=== PATIENT | female | born 1925 | race Caucasian/White ===

== ENCOUNTER 2017-04-15 09:42 | Inpatient (IN) ==
[2017-04-15] MEDS ORDERED: ONDANSETRON 4 MG/2 ML VIAL ONE (10:04)
[2017-04-15] MEDS ORDERED: ONDANSETRON 4 MG/2 ML VIAL IV STA (10:05)
[2017-04-15] MEDS ORDERED: SODIUM CHLORIDE 0.9% 500 ML IV STA (10:06)
[2017-04-15 10:16] LABS: Basophils % 0.4 % (0.0-0.8); Eosinophils % 0.2 % (0.00-10.9); Hematocrit 37.1 VOL% (35.7-47.0); Hemoglobin 12.8 GM/DL (12.0-16.0); Immature Granulocytes % 0.9 %; Immature Granulocytes Absolute 0.05 #; Lymphocytes # 0.5 10*3/uL (1.4-4.0); Lymphocytes % 9.2 % (21.3-54.2); Mean Corpuscular HGB Conc 34.5 GM/DL (32-36); Mean Corpuscular Hemoglobin 31 PG (27-34); Mean Corpuscular Volume 89.4 FL (87-102); Monocytes # 0.1 10*3/uL (0.11-0.8); Monocytes % 1.1 % (1.7-12.7); Neutrophils % 88.2 % (38.7-73.9); Platelet Count 257 T/CUMM (130-400); Red Blood Count 4.15 MC/CUMM (3.8-5.5); Red Cell Distribution Width 12.3 % (9.3-17.3); White Blood Count 5.7 T/CUMM (4-12)
[2017-04-15 10:38] LABS: Band Neutrophils 6 % (0-10); Hypochromasia 1+; Lymphocytes 12 % (20-55); Metamyelocytes 1 %; Microcytosis Slight; Segmented Neutrophils 79 % (50-85); Total Cells Counted 100
[2017-04-15 10:41] LABS: Alanine Aminotransferase 15 U/L (13-56); Albumin 2.9 G/DL (3.4-5.0); Alkaline Phosphatase 173 U/L (45-117); Aspartate Amino Transferase 17 U/L (0-37); Blood Urea Nitrogen 29 MG/DL (7-18); Calcium 9.5 MG/DL (8.5-10.1); Glucose 122 MG/DL (74-106); Osmolality,Calculated 263.1 MOS/KG (273-304); Potassium 3.3 MMOL/L (3.5-5.1); Sodium 128 MMOL/L (136-145); Total Protein 7.5 G/DL (6.4-8.3)
[2017-04-15 10:42] LABS: Apearance,Urine CLOUDY (Clear); Bacteria,Urine Many /HPF (Few); Bilirubin,Urine Negative (Negative); Blood, Urine Small mg/dL (Negative); Glucose,Urine (UA) Negative (Negative); Ketones,Urine Negative (Negative); Nitrite,Urine Negative (Negative); Protein,Urine 100 MG/DL; RBC,Urine 218 /HPF (0-4); Squamous Epithelial Cell,Urine Many /HPF (0-10); Urine Color Yellow (Yellow); Urine Specific Gravity 1.014 (1.001-1.035); WBC,Urine 3299 /HPF (0-6)
[2017-04-15] MEDS ORDERED: LEVOFLOXACIN INJ 500 MG in PREMIX 1 EACH IV STA (11:01)
[2017-04-15 11:03] LABS: Lactic Acid 4.4 MMOL/L (0.4-2.0)
[2017-04-15] MEDS ORDERED: LEVOFLOXACIN INJ 100 ML IV ONE (11:23)
[2017-04-15] MEDS ORDERED: ONDANSETRON 4 MG/2 ML VIAL IV PRN (13:19)
[2017-04-15] MEDS ORDERED: ACETAMINOPHEN 500 MG TABLET ONE (14:02)
[2017-04-15] MEDS: ACETAMINOPHEN 325 MG TABLET PO PRN ×2 (14:11→23:37)
[2017-04-15] MEDS ORDERED: ACETAMINOPHEN 325 MG TABLET ONE (14:11)
[2017-04-15] MEDS: SODIUM CHLORIDE 0.9% 1,000 ML IV SCH ×2 (14:12→20:33)
[2017-04-15 14:47] LABS: Lactic Acid 3.6 MMOL/L (0.4-2.0)
[2017-04-15] MEDS: cefTRIAXone 500 MG in SYRINGE 1 EACH IV SCH (20:32)
[2017-04-15 23:13] LABS: Troponin I Only 3.35 NG/ML (0.00-0.045)
[2017-04-15] MEDS: ALPRAZolam 0.25 MG TABLET PO PRN (23:37)
[2017-04-16 05:30] LABS: CKMB % 3.8 %
[2017-04-16 05:31] LABS: Calcium 8.6 MG/DL (8.5-10.1); Magnesium 1.4 MG/DL (1.8-2.4); Osmolality,Calculated 275.2 MOS/KG (273-304); Potassium 4.6 MMOL/L (3.5-5.1)
[2017-04-16 05:41] LABS: Troponin I Only 3.04 NG/ML (0.00-0.045)
[2017-04-16] MEDS: LEVOTHYROXINE 75 MCG TABLET PO SCH (06:47)
[2017-04-16] MEDS: LISINOPRIL 20 MG TABLET PO SCH (06:48)
[2017-04-16 08:29] LABS: Basophils # 0.1 10*3/uL (0.0-0.2); Basophils % 0.4 % (0.0-0.8); Hematocrit 31.4 VOL% (35.7-47.0); Hemoglobin 11.2 GM/DL (12.0-16.0); Immature Granulocytes % 4.1 %; Immature Granulocytes Absolute 1.17 #; Lymphocytes # 0.9 10*3/uL (1.4-4.0); Lymphocytes % 3.2 % (21.3-54.2); Mean Corpuscular HGB Conc 35.7 GM/DL (32-36); Mean Corpuscular Hemoglobin 32 PG (27-34); Mean Platelet Volume 9.2 FL (9.6-12.0); Monocytes % 3.5 % (1.7-12.7); Neutrophils # 25.2 10*3/uL (1.4-7.4); Neutrophils % 88.8 % (38.7-73.9); Platelet Count 270 T/CUMM (130-400); Red Blood Count 3.49 MC/CUMM (3.8-5.5); Red Cell Distribution Width 12.9 % (9.3-17.3); White Blood Count 28.4 T/CUMM (4-12)
[2017-04-16 08:51] LABS: Band Neutrophils 8 % (0-10); Hypochromasia 1+; Lymphocytes 2 % (20-55); Ovalocytes Slight; Platelet Estimate Adequate; Segmented Neutrophils 86 % (50-85); Total Cells Counted 100
[2017-04-16 08:52] LABS: Microcytosis Slight
[2017-04-16] MEDS: CARVEDILOL 3.125 MG TABLET PO SCH ×2 (10:18→21:48)
[2017-04-16] MEDS: ASPIRIN EC 81 MG TABLET PO SCH (10:19)
[2017-04-16] MEDS: PANTOPRAZOLE 40 MG TABLET PO SCH (10:19)
[2017-04-16] MEDS: ALPRAZolam 0.25 MG TABLET PO PRN (10:19)
[2017-04-16 10:26] LABS: CKMB % 3.4 %
[2017-04-16 10:27] LABS: Troponin I Only 2.35 NG/ML (0.00-0.045)
[2017-04-16] MEDS: SODIUM CHLORIDE 0.9% 1,000 ML IV SCH (10:44)
[2017-04-16] MEDS: LEVOFLOXACIN INJ 250 MG in PREMIX 1 EACH IV SCH (10:44)
[2017-04-16] MEDS ORDERED: MAGNESIUM CITRATE 300 ML BOTTLE PO ONE (11:52)
[2017-04-16] MEDS ORDERED: MAGNESIUM SULF RIDER 2 GM in PREMIX 1 EACH IV PRN (11:52)
[2017-04-16 13:46] LABS: Calcium 8.4 MG/DL (8.5-10.1); Osmolality,Calculated 274.5 MOS/KG (273-304); Potassium 3.8 MMOL/L (3.5-5.1)
[2017-04-16] MEDS: cefTRIAXone 500 MG in SYRINGE 1 EACH IV SCH (21:49)
[2017-04-17] MEDS: SODIUM CHLORIDE 0.9% 1,000 ML IV SCH ×2 (03:00→17:00)
[2017-04-17 05:11] LABS: Basophils % 0.2 % (0.0-0.8); Eosinophils % 0.1 % (0.00-10.9); Hemoglobin 9.5 GM/DL (12.0-16.0); Immature Granulocytes % 1.6 %; Immature Granulocytes Absolute 0.35 #; Lymphocytes # 0.8 10*3/uL (1.4-4.0); Lymphocytes % 3.6 % (21.3-54.2); Mean Corpuscular HGB Conc 33.9 GM/DL (32-36); Mean Corpuscular Hemoglobin 31 PG (27-34); Mean Corpuscular Volume 92.1 FL (87-102); Mean Platelet Volume 9.5 FL (9.6-12.0); Monocytes # 0.7 10*3/uL (0.11-0.8); Monocytes % 2.9 % (1.7-12.7); Neutrophils # 20.5 10*3/uL (1.4-7.4); Neutrophils % 91.6 % (38.7-73.9); Platelet Count 242 T/CUMM (130-400); Red Blood Count 3.04 MC/CUMM (3.8-5.5); Red Cell Distribution Width 12.8 % (9.3-17.3); White Blood Count 22.4 T/CUMM (4-12)
[2017-04-17] MEDS: LEVOTHYROXINE 75 MCG TABLET PO SCH (05:12)
[2017-04-17 05:43] LABS: Calcium 8.3 MG/DL (8.5-10.1); Magnesium 2.1 MG/DL (1.8-2.4); Osmolality,Calculated 279.2 MOS/KG (273-304); Potassium 3.8 MMOL/L (3.5-5.1)
[2017-04-17 06:21] LABS: Risk Ratio 2.17; VLDL CHOLESTEROL 15.4 MG/DL
[2017-04-17 06:34] LABS: Band Neutrophils 1 % (0-10); Lymphocytes 6 % (20-55); Metamyelocytes 1 %; Segmented Neutrophils 90 % (50-85)
[2017-04-17 06:35] LABS: Hypochromasia Slight; Platelet Estimate Normal; Total Cells Counted 100
[2017-04-17] MEDS: ASPIRIN EC 81 MG TABLET PO SCH (09:13)
[2017-04-17] MEDS: PANTOPRAZOLE 40 MG TABLET PO SCH (09:13)
[2017-04-17] MEDS: CARVEDILOL 3.125 MG TABLET PO SCH (09:20)
[2017-04-17] MEDS ORDERED: SODIUM CHLORIDE 0.9% 250 ML IV ONE (10:43)
[2017-04-17 10:57] LABS: Basophils # 0.1 10*3/uL (0.0-0.2); Basophils % 0.3 % (0.0-0.8); Eosinophils % 0.1 % (0.00-10.9); Hemoglobin 10.7 GM/DL (12.0-16.0); Immature Granulocytes % 1.3 %; Immature Granulocytes Absolute 0.28 #; Lymphocytes % 4.8 % (21.3-54.2); Mean Corpuscular HGB Conc 33.4 GM/DL (32-36); Mean Corpuscular Hemoglobin 31 PG (27-34); Mean Corpuscular Volume 93.3 FL (87-102); Mean Platelet Volume 9.4 FL (9.6-12.0); Monocytes # 0.6 10*3/uL (0.11-0.8); Monocytes % 2.8 % (1.7-12.7); Neutrophils # 19.7 10*3/uL (1.4-7.4); Neutrophils % 90.7 % (38.7-73.9); Platelet Count 256 T/CUMM (130-400); Red Blood Count 3.43 MC/CUMM (3.8-5.5); Red Cell Distribution Width 12.9 % (9.3-17.3); White Blood Count 21.7 T/CUMM (4-12)
[2017-04-17 11:01] LABS: Allen Test Positive
[2017-04-17 11:02] LABS: ABG Base Excess -1.8 MMOL/L (-2.5-2.5); ABG HCO3 22.9 MMOL/L (20-26); ABG PCO2 42.7 MM HG (35-48); ABG PH 7.353 (7.35-7.45); ABG TCO2 21.5 MMOL/L (23-27)
[2017-04-17 11:18] LABS: Band Neutrophils 10 % (0-10); Burr Cells Few; Hypochromasia 1+; Lymphocytes 4 % (20-55); Segmented Neutrophils 83 % (50-85); Total Cells Counted 100
[2017-04-17 11:19] LABS: Microcytosis Slight; Ovalocytes Slight; Platelet Estimate Normal
[2017-04-17 11:28] LABS: Albumin 2.1 G/DL (3.4-5.0); Bilirubin,Total 0.6 MG/DL (0.2-1.0); Calcium 8.4 MG/DL (8.5-10.1); Magnesium 2.2 MG/DL (1.8-2.4); Osmolality,Calculated 281.2 MOS/KG (273-304); Potassium 3.6 MMOL/L (3.5-5.1); Total Protein 5.3 G/DL (6.4-8.3)
[2017-04-17] MEDS: LEVOFLOXACIN INJ 250 MG in PREMIX 1 EACH IV SCH (13:30)
[2017-04-17] MEDS: ACETAMINOPHEN 325 MG TABLET PO PRN (23:40)
[2017-04-17] MEDS: ALPRAZolam 0.25 MG TABLET PO PRN (23:40)
[2017-04-18] MEDS: cefTRIAXone 500 MG in SYRINGE 1 EACH IV SCH (02:11)
[2017-04-18 04:39] LABS: Basophils # 0.1 10*3/uL (0.0-0.2); Basophils % 0.3 % (0.0-0.8); Eosinophils # 0.1 10*3/uL (0.0-0.87); Eosinophils % 0.3 % (0.00-10.9); Hematocrit 26.5 VOL% (35.7-47.0); Hemoglobin 9.3 GM/DL (12.0-16.0); Immature Granulocytes Absolute 0.23 #; Lymphocytes # 1.1 10*3/uL (1.4-4.0); Lymphocytes % 4.7 % (21.3-54.2); Mean Corpuscular HGB Conc 35.1 GM/DL (32-36); Mean Corpuscular Hemoglobin 32 PG (27-34); Mean Corpuscular Volume 91.1 FL (87-102); Mean Platelet Volume 9.8 FL (9.6-12.0); Monocytes # 0.7 10*3/uL (0.11-0.8); Monocytes % 3.2 % (1.7-12.7); Neutrophils # 20.5 10*3/uL (1.4-7.4); Neutrophils % 90.5 % (38.7-73.9); Platelet Count 248 T/CUMM (130-400); Red Blood Count 2.91 MC/CUMM (3.8-5.5); White Blood Count 22.7 T/CUMM (4-12)
[2017-04-18 05:08] LABS: Calcium 8.5 MG/DL (8.5-10.1); Magnesium 2.1 MG/DL (1.8-2.4); Potassium 3.6 MMOL/L (3.5-5.1)
[2017-04-18] MEDS: LEVOTHYROXINE 75 MCG TABLET PO SCH (05:25)
[2017-04-18 05:26] LABS: Band Neutrophils 4 % (0-10); Eosinophils 2 % (0-10); Hypochromasia 1+; Lymphocytes 3 % (20-55); Microcytosis Slight; Segmented Neutrophils 88 % (50-85); Total Cells Counted 100
[2017-04-18 05:27] LABS: Platelet Estimate Normal
[2017-04-18] MEDS: ASPIRIN EC 81 MG TABLET PO SCH (10:03)
[2017-04-18] MEDS: ALPRAZolam 0.25 MG TABLET PO PRN ×3 (10:04→21:36)
[2017-04-18] MEDS: PANTOPRAZOLE 40 MG TABLET PO SCH (10:04)
[2017-04-18] MEDS: SODIUM CHLORIDE 0.9% 1,000 ML IV SCH ×2 (10:10→18:27)
[2017-04-18] MEDS: LEVOFLOXACIN INJ 250 MG in PREMIX 1 EACH IV SCH (14:42)
[2017-04-18] MEDS: ACETAMINOPHEN 325 MG TABLET PO PRN ×2 (17:08→23:00)
[2017-04-19] MEDS: cefTRIAXone 500 MG in SYRINGE 1 EACH IV SCH (01:43)
[2017-04-19] MEDS: SODIUM CHLORIDE 0.9% 1,000 ML IV SCH ×2 (03:00→17:47)
[2017-04-19 04:59] LABS: Basophils # 0.1 10*3/uL (0.0-0.2); Basophils % 0.4 % (0.0-0.8); Eosinophils # 0.1 10*3/uL (0.0-0.87); Eosinophils % 0.9 % (0.00-10.9); Hemoglobin 9.8 GM/DL (12.0-16.0); Immature Granulocytes % 0.6 %; Immature Granulocytes Absolute 0.08 #; Lymphocytes # 1.2 10*3/uL (1.4-4.0); Lymphocytes % 8.2 % (21.3-54.2); Mean Corpuscular HGB Conc 33.8 GM/DL (32-36); Mean Corpuscular Hemoglobin 31 PG (27-34); Mean Corpuscular Volume 92.1 FL (87-102); Mean Platelet Volume 10.1 FL (9.6-12.0); Monocytes % 6.8 % (1.7-12.7); Neutrophils # 11.8 10*3/uL (1.4-7.4); Neutrophils % 83.1 % (38.7-73.9); Platelet Count 265 T/CUMM (130-400); Red Blood Count 3.15 MC/CUMM (3.8-5.5); Red Cell Distribution Width 13.2 % (9.3-17.3); White Blood Count 14.1 T/CUMM (4-12)
[2017-04-19 05:32] LABS: Band Neutrophils 1 % (0-10); Burr Cells Slight; Eosinophils 2 % (0-10); Giant Platelets Few; Hypochromasia 1+; Lymphocytes 7 % (20-55); Microcytosis Slight; Ovalocytes Slight; Platelet Estimate Adequate; Segmented Neutrophils 84 % (50-85); Total Cells Counted 100
[2017-04-19 05:38] LABS: Calcium 8.1 MG/DL (8.5-10.1); Magnesium 1.8 MG/DL (1.8-2.4); Osmolality,Calculated 280.8 MOS/KG (273-304); Potassium 3.9 MMOL/L (3.5-5.1)
[2017-04-19] MEDS: LEVOTHYROXINE 75 MCG TABLET PO SCH (06:13)
[2017-04-19] MEDS: ACETAMINOPHEN 325 MG TABLET PO PRN ×2 (06:17→20:51)
[2017-04-19] MEDS: PANTOPRAZOLE 40 MG TABLET PO SCH (09:01)
[2017-04-19] MEDS: ASPIRIN EC 81 MG TABLET PO SCH (09:02)
[2017-04-19] MEDS ORDERED: hydrALAZINE 20 MG/1 ML VIAL IM PRN (09:07)
[2017-04-19] MEDS: hydrALAZINE 20 MG/1 ML VIAL IV PRN ×2 (09:21→16:31)
[2017-04-19] MEDS: LEVOFLOXACIN INJ 250 MG in PREMIX 1 EACH IV SCH (11:13)
[2017-04-19] MEDS ORDERED: SODIUM CHLORIDE 0.9% 1,000 ML IV SCH (16:30)
[2017-04-19] MEDS: ALPRAZolam 0.25 MG TABLET PO PRN (20:51)
[2017-04-19] MEDS: ATORVASTATIN 40 MG TABLET PO SCH (20:51)
[2017-04-20] MEDS: cefTRIAXone 500 MG in SYRINGE 1 EACH IV SCH (00:54)
[2017-04-20] MEDS: hydrALAZINE 20 MG/1 ML VIAL IV PRN ×3 (01:01→16:42)
[2017-04-20 04:55] LABS: Basophils % 0.2 % (0.0-0.8); Eosinophils % 0.2 % (0.00-10.9); Hematocrit 32.5 VOL% (35.7-47.0); Hemoglobin 10.7 GM/DL (12.0-16.0); Immature Granulocytes % 1.2 %; Immature Granulocytes Absolute 0.15 #; Lymphocytes # 1.2 10*3/uL (1.4-4.0); Lymphocytes % 9.6 % (21.3-54.2); Mean Corpuscular HGB Conc 32.9 GM/DL (32-36); Mean Corpuscular Hemoglobin 31 PG (27-34); Mean Corpuscular Volume 92.6 FL (87-102); Mean Platelet Volume 9.6 FL (9.6-12.0); Monocytes # 0.7 10*3/uL (0.11-0.8); Monocytes % 5.4 % (1.7-12.7); Neutrophils # 10.7 10*3/uL (1.4-7.4); Neutrophils % 83.4 % (38.7-73.9); Platelet Count 317 T/CUMM (130-400); Red Blood Count 3.51 MC/CUMM (3.8-5.5); Red Cell Distribution Width 13.2 % (9.3-17.3); White Blood Count 12.9 T/CUMM (4-12)
[2017-04-20] MEDS: LEVOTHYROXINE 75 MCG TABLET PO SCH (04:55)
[2017-04-20] MEDS: LISINOPRIL 20 MG TABLET PO SCH (04:55)
[2017-04-20 05:10] LABS: PT Patient Result 10.2 SECS
[2017-04-20 05:19] LABS: Hypochromasia 1+; Lymphocytes 11 % (20-55); Microcytosis Slight; Ovalocytes Slight; Segmented Neutrophils 87 % (50-85); Total Cells Counted 100
[2017-04-20 05:20] LABS: Platelet Estimate Normal
[2017-04-20 05:28] LABS: Calcium 8.8 MG/DL (8.5-10.1); Magnesium 1.9 MG/DL (1.8-2.4); Osmolality,Calculated 280.8 MOS/KG (273-304)
[2017-04-20 05:46] LABS: Troponin I Only 0.155 NG/ML (0.00-0.045)
[2017-04-20] MEDS ORDERED: ceFAZolin 1,000 MG in SYRINGE 1 EACH IV ONE (08:00)
[2017-04-20] MEDS ORDERED: LIDOCAINE 2%/EPI 20 ML VIAL ONE (08:57)
[2017-04-20] MEDS ORDERED: ceFAZolin 1,000 MG VIAL ONE (08:57)
[2017-04-20] MEDS ORDERED: DIAZEPAM 5 MG TABLET PO ONE (09:00)
[2017-04-20] MEDS ORDERED: diphenhydrAMINE CAP 25 MG CAPSULE PO ONE (09:00)
[2017-04-20] MEDS ORDERED: ceFAZolin 1,000 MG VIAL IRRIG ONE (09:00)
[2017-04-20] MEDS ORDERED: HYDROmorphone 2 MG/1 ML VIAL ONE (09:38)
[2017-04-20] MEDS ORDERED: TISSUE ADHESIVE 1 EACH APPLICATOR TOP ONE (10:24)
[2017-04-20] MEDS: ASPIRIN EC 81 MG TABLET PO SCH (12:31)
[2017-04-20] MEDS: amLODIPine 10 MG TABLET PO SCH (12:31)
[2017-04-20] MEDS: PANTOPRAZOLE 40 MG TABLET PO SCH (12:32)
[2017-04-20] MEDS: ALPRAZolam 0.25 MG TABLET PO PRN (20:38)
[2017-04-20] MEDS: ACETAMINOPHEN 325 MG TABLET PO PRN (20:38)
[2017-04-20] MEDS: ATORVASTATIN 40 MG TABLET PO SCH (20:38)
[2017-04-20] MEDS: SODIUM CHLORIDE 0.9% 1,000 ML IV SCH (20:42)
[2017-04-21] MEDS: cefTRIAXone 500 MG in SYRINGE 1 EACH IV SCH (01:10)
[2017-04-21] MEDS: LISINOPRIL 20 MG TABLET PO SCH (05:10)
[2017-04-21] MEDS: LEVOTHYROXINE 75 MCG TABLET PO SCH (05:10)
[2017-04-21 05:41] LABS: Basophils % 0.2 % (0.0-0.8); Eosinophils % 0.2 % (0.00-10.9); Hematocrit 31.9 VOL% (35.7-47.0); Hemoglobin 10.8 GM/DL (12.0-16.0); Immature Granulocytes % 1.2 %; Immature Granulocytes Absolute 0.16 #; Lymphocytes # 0.9 10*3/uL (1.4-4.0); Mean Corpuscular HGB Conc 33.9 GM/DL (32-36); Mean Corpuscular Hemoglobin 31 PG (27-34); Mean Corpuscular Volume 91.9 FL (87-102); Mean Platelet Volume 9.4 FL (9.6-12.0); Monocytes # 0.9 10*3/uL (0.11-0.8); Monocytes % 7.2 % (1.7-12.7); Neutrophils # 10.9 10*3/uL (1.4-7.4); Neutrophils % 84.2 % (38.7-73.9); Platelet Count 349 T/CUMM (130-400); Red Blood Count 3.47 MC/CUMM (3.8-5.5); Red Cell Distribution Width 13.2 % (9.3-17.3); White Blood Count 12.9 T/CUMM (4-12)
[2017-04-21 06:10] LABS: Osmolality,Calculated 281.5 MOS/KG (273-304); Potassium 4.5 MMOL/L (3.5-5.1)
[2017-04-21] MEDS ORDERED: CARVEDILOL 3.125 MG TABLET PO SCH (09:30)
[2017-04-21] MEDS ORDERED: APIXABAN 2.5 MG TABLET PO SCH (09:30)
[2017-04-21] MEDS: amLODIPine 10 MG TABLET PO SCH (10:17)
[2017-04-21] MEDS: ASPIRIN EC 81 MG TABLET PO SCH (10:17)
[2017-04-21] MEDS: PANTOPRAZOLE 40 MG TABLET PO SCH (10:17)
[2017-04-21 12:17] VITALS: BP 194/83
== END 2017-04-21 18:15 | disposition home health service (06) | DRG 871 ==
LOC: EDBD → EDUNIT# → N.ED 09:42 → N.EDINP 11:11 → N.TELEN 15:03
PROVIDERS: ADMIT Family Medicine; ATTEND Family Medicine